=== PATIENT | male | born 1935 | race Caucasian/White ===

== ENCOUNTER 2024-02-12 15:13 | Inpatient (IN) | payer OTHER ==
[~2024-02-12] VITALS: Ht 170.2 cm; Wt 65.8 kg
[2024-02-12 15:41] LABS: HEMATOCRIT 34.5 % (36.7-47.1); HEMOGLOBIN 11.5 g/dL (12.5-16.3); MEAN CORPUSCULAR HGB CONC 33 g/dL (32.5-36.3)
[2024-02-12 15:44] LABS: DIFFERENTIAL COMMENT 0; EOSINOPHILS # (AUTO) 0.3 K/uL (0.0-0.7); EOSINOPHILS % (AUTO) 4.9 % (0.0-7.0); LYMPHOCYTES # (AUTO) 0.9 K/uL (0.8-4.8); MEAN CORPUSCULAR VOLUME 90.2 fL (73.0-96.2); MONOCYTES # (AUTO) 0.6 K/uL (0.1-1.30); MONOCYTES % (AUTO) 10.9 % (0.0-11.0); NEUTROPHILS # (AUTO) 3.6 K/uL (1.8-8.9); NEUTROPHILS % (AUTO) 67.2 % (38.5-71.5); PLATELET COUNT (AUTO) 171 K/uL (152-348); RED BLOOD CELL COUNT(AUTO) 3.83 MIL/uL (4.06-5.63); RED CELL DISTRIBUTION WIDTH 14.8 % (12.1-16.2); WHITE BLOOD COUNT (AUTO) 5.3 K/uL (3.6-10.2)
[2024-02-12 15:49] LABS: CARBON DIOXIDE 25 mmol/L (21-32); CHLORIDE 103 mmol/L (98-107); CREATININE 1.2 mg/dL (0.6-1.3); GLUCOSE 104 mg/dL (74-106); POTASSIUM 4.3 mmol/L (3.5-5.1); SODIUM SERUM 138 mmol/L (136-145); UREA NITROGEN, BLOOD 31 mg/dL (7-18)
[2024-02-12 15:50] LABS: CALCIUM 8.2 mg/dL (8.5-10.1)
[2024-02-12 15:57] LABS: ALANINE AMINOTRANSFERASE 12 U/L (16-63); ALBUMIN 3.2 g/dL (3.4-5.0); ALKALINE PHOSPHATASE 83 U/L (50-136); ASPARTATE AMINOTRANSFERASE 9 U/L (15-37); BILIRUBIN,DIRECT 0.1 mg/dL (0.0-0.2); BILIRUBIN,TOTAL 0.4 mg/dL (0.2-1.0); TOTAL PROTEIN, SERUM 6.5 g/dL (6.4-8.2)
[2024-02-12] MEDS ORDERED: LATA2.5D15 EACHEYE (16:04)
[2024-02-12] MEDS ORDERED: OLME20TA13 PO (16:04)
[2024-02-12] MEDS ORDERED: ASPI81TA31 PO (16:04)
[2024-02-12] MEDS: IV NS 1000 ML 1,000 ML IV ONE (16:43)
[2024-02-12] MEDS ORDERED: ASPIRIN 81 MG TAB.CHEW ONE ×2 (16:55)
[2024-02-12] MEDS: ASPIRIN 81 MG TAB.CHEW PO ONE (16:58)
[2024-02-12] MEDS ORDERED: ENOXAPARIN SODIUM 60 MG/0.6 ML DISP.SYRIN SQ ONE (18:29)
[2024-02-12] MEDS ORDERED: MAGNESIUM HYDROXIDE 30 ML LIQUID UDC PO PRN (18:30)
[2024-02-12] MEDS ORDERED: REMEDY ESSENTIAL ZINC PASTE 113 GM TP PRN (18:30)
[2024-02-12] MEDS ORDERED: ACETAMINOPHEN 325 MG TABLET PO PRN (18:30)
[2024-02-12] MEDS ORDERED: ONDANSETRON 4 MG/2 ML VIAL IV PRN (18:30)
[2024-02-12] MEDS: ENOXAPARIN SODIUM 60 MG/0.6 ML DISP.SYRIN SQ ONE (18:49)
[2024-02-12] MEDS: IV NS 1000 ML 1,000 ML IV PRN (22:12)
[2024-02-12 22:15] VITALS: BP 115/61; TEMP 98.2; O2SAT 95
[2024-02-12 22:17] VITALS: BP 124/50; O2SAT 97
[2024-02-12 22:20] VITALS: BP 129/58; O2SAT 97
[2024-02-13] VITALS (8 sets, daily range): BP systolic 97–142; BP diastolic 42–75; TEMP 97.4–98.7; O2SAT 95–98
[2024-02-13 07:23] LABS: BASOPHILS % (AUTO) 0.7 % (0.0-2.0); EOSINOPHILS # (AUTO) 0.3 K/uL (0.0-0.7); EOSINOPHILS % (AUTO) 5.7 % (0.0-7.0); HEMATOCRIT 33.9 % (36.7-47.1); HEMOGLOBIN 11.5 g/dL (12.5-16.3); LYMPHOCYTES # (AUTO) 1.6 K/uL (0.8-4.8); LYMPHOCYTES % (AUTO) 32.4 % (20.5-51.5); MEAN CORPUSCULAR HEMOGLOBIN 30.7 uug (23.8-33.4); MEAN CORPUSCULAR HGB CONC 34 g/dL (32.5-36.3); MEAN CORPUSCULAR VOLUME 90.8 fL (73.0-96.2); MONOCYTES # (AUTO) 0.5 K/uL (0.1-1.30); MONOCYTES % (AUTO) 10.5 % (0.0-11.0); NEUTROPHILS # (AUTO) 2.4 K/uL (1.8-8.9); NEUTROPHILS % (AUTO) 50.7 % (38.5-71.5); PLATELET COUNT (AUTO) 151 K/uL (152-348); RED BLOOD CELL COUNT(AUTO) 3.73 MIL/uL (4.06-5.63); RED CELL DISTRIBUTION WIDTH 14.5 % (12.1-16.2); WHITE BLOOD COUNT (AUTO) 4.8 K/uL (3.6-10.2)
[2024-02-13 07:30] LABS: DIFFERENTIAL COMMENT 1
[2024-02-13 07:33] LABS: CALCIUM 8.5 mg/dL (8.5-10.1); PHOSPHOROUS 3.1 mg/dL (2.5-4.9); POTASSIUM 4.4 mmol/L (3.5-5.1)
[2024-02-13] MEDS: LOSARTAN POTASSIUM 50 MG TABLET PO SCH (08:46)
[2024-02-13] MEDS: ASPIRIN 81 MG TAB.CHEW PO SCH (08:49)
[2024-02-13] MEDS: LATANOPROST OPHT DROP 2.5 ML BOTTLE EACHEYE SCH (17:28)
[2024-02-13] MEDS: ATORVASTATIN 20 MG TABLET PO SCH (21:19)
[2024-02-14 00:25] VITALS: BP 148/75; TEMP 97.2; O2SAT 100
[2024-02-14 04:15] VITALS: BP 134/71; TEMP 97.6; O2SAT 96
[2024-02-14 07:41] VITALS: BP 145/76; TEMP 97.8; O2SAT 96
[2024-02-14 08:32] LABS: BASOPHILS % (AUTO) 0.5 % (0.0-2.0); EOSINOPHILS # (AUTO) 0.2 K/uL (0.0-0.7); EOSINOPHILS % (AUTO) 4.3 % (0.0-7.0); HEMATOCRIT 35.5 % (36.7-47.1); HEMOGLOBIN 11.9 g/dL (12.5-16.3); LYMPHOCYTES # (AUTO) 1.4 K/uL (0.8-4.8); LYMPHOCYTES % (AUTO) 27.4 % (20.5-51.5); MEAN CORPUSCULAR HEMOGLOBIN 30.3 uug (23.8-33.4); MEAN CORPUSCULAR HGB CONC 34 g/dL (32.5-36.3); MEAN CORPUSCULAR VOLUME 90.5 fL (73.0-96.2); MONOCYTES # (AUTO) 0.6 K/uL (0.1-1.30); MONOCYTES % (AUTO) 11.9 % (0.0-11.0); NEUTROPHILS # (AUTO) 2.9 K/uL (1.8-8.9); NEUTROPHILS % (AUTO) 55.9 % (38.5-71.5); PLATELET COUNT (AUTO) 154 K/uL (152-348); RED BLOOD CELL COUNT(AUTO) 3.93 MIL/uL (4.06-5.63); RED CELL DISTRIBUTION WIDTH 14.9 % (12.1-16.2); WHITE BLOOD COUNT (AUTO) 5.2 K/uL (3.6-10.2)
[2024-02-14 08:45] LABS: DIFFERENTIAL COMMENT 1
[2024-02-14 08:47] LABS: CALCIUM 8.6 mg/dL (8.5-10.1); CARBON DIOXIDE 27 mmol/L (21-32); CHLORIDE 108 mmol/L (98-107); CREATININE 1.1 mg/dL (0.6-1.3); GLUCOSE 96 mg/dL (74-106); POTASSIUM 4.7 mmol/L (3.5-5.1); SODIUM SERUM 141 mmol/L (136-145); UREA NITROGEN, BLOOD 20 mg/dL (7-18)
[2024-02-14 11:45] VITALS: BP 115/57; TEMP 98.6; O2SAT 95
[2024-02-14 16:00] VITALS: BP 128/60; TEMP 97.9; O2SAT 97
== END 2024-02-14 17:40 | disposition short-term general hospital (02) | DRG 280 ==
LOC: ER 15:14 → TELE3 21:38
PROVIDERS: ADMIT Nurse Practitioner Acute Care; ATTEND Nurse Practitioner Acute Care
DX: I49.9 Cardiac arrhythmia, unspecified (principal); G93.41 Metabolic encephalopathy; I21.A1 Myocardial infarction type 2; Z79.82 Long term (current) use of aspirin; E78.5 Hyperlipidemia, unspecified; I10 Essential (primary) hypertension
CPT/HCPCS: 36415; 70450; 71045; 83605; 83735; 84100; 84484; 85025; 86850; 86900; 86901; 93005; 93307; G0378; J1650; J7040